=== PATIENT | female | born 1985 | race Native Hawaiian/Other Pacific Islander ===

== ENCOUNTER 2018-03-23 14:55 | Emergency (ER) | payer BC, OTHER ==
[~2018-03-23] VITALS: Ht 170.2 cm; Wt 51.3 kg
[2018-03-23 15:17] LABS: *URINE HCG, QUAL NEGATIVE (NEGATIVE)
[2018-03-23 15:19] LABS: *BILIRUBIN,URIN NEGATIVE (NEGATIVE); *BLOOD, URINE NEGATIVE (NEGATIVE); *COLOR,URINE YELLOW (YELLOW); *KETONES,URINE NEGATIVE (NEGATIVE); *PROTEIN,URINE NEGATIVE (NEGATIVE); *UROBILINOGEN,URINE 0.2 E.U./dl (NORMAL); LEUKOCYTE ESTERASE ,URINE TRACE (NEGATIVE); NITRITE, URINE NEGATIVE (NEGATIVE); UGLUCOSE NEGATIVE (NEGATIVE)
[2018-03-23 15:21] LABS: *CLARITY,URINE HAZY (CLEAR)
[2018-03-23 15:23] LABS: BACTERIA,URINE FEW /HPF (NONE SEEN); MUCUS,URINE MANY /LPF (0-FEW); RBC,URINE 0-3 /HPF (0-3); SQUAMOUS EPITHELIAL CELL,UR MODERATE /HPF (NONE SEEN)
--- NOTE | 2018-03-23 15:24 | NUR ---
PATIENT WAS SEEN BY DR SALINAS. URINE SPECIMEN SENT TO LAB.
[2018-03-23] MEDS ORDERED: SULFAMETH/TRIMETH 800/160 MG TABLET PO ONE (15:30)
[2018-03-23] MEDS ORDERED: SULFAMETH/TRIMETH 800/160 MG TABLET ONE (15:31)
--- NOTE | 2018-03-23 15:43 | NUR ---
DC, RX AND F/U INSTRUCTIONS GIVEN AND EXPLAINED TO PATIENT STATES SHE UNDERSTANDS ALL INSTRUCTIONS
== END 2018-03-23 15:59 | disposition home or self-care (01) ==
LOC: ER 14:57
DX: N39.0 Urinary tract infection, site not specified (principal)
CPT/HCPCS: 84703; A4663